=== PATIENT | male | born 1990 | race Caucasian/White ===

== ENCOUNTER 2023-07-18 07:37 | Emergency (ER) | payer MEDICAID ==
[~2023-07-18] VITALS: Ht 175.3 cm; Wt 104.2 kg
[2023-07-18 08:00] VITALS: PULSE 79; RESP 16; TEMP 98.3; O2SAT 94
[2023-07-18] MEDS ORDERED: cefTRIAXone SOD 1,000 MG VL IM ONE ×2 (08:30→10:15)
[2023-07-18] MEDS ORDERED: cefTRIAXone 1GM/50ML D5W 50 ML IV ONE (08:30)
[2023-07-18] MEDS ORDERED: CLINDAMYCIN 900MG IV 50 ML IV ONE (08:30)
[2023-07-18] MEDS ORDERED: PRED20TA2 PO (10:15)
[2023-07-18] MEDS ORDERED: CLIN300C70 PO (10:15)
[2023-07-18] MEDS ORDERED: methylPREDNISolone SOD SUCC 125 MG/2 ML VL IV ONE (10:45)
[2023-07-18 10:46] VITALS: BP 108/65; PULSE 73; RESP 22; O2SAT 94
== END 2023-07-18 10:56 | disposition home or self-care (01) ==
LOC: ER 07:37
DX: L03.012 Cellulitis of left finger (principal); I10 Essential (primary) hypertension; F17.210 Nicotine dependence, cigarettes, uncomplicated; Z79.2 Long term (current) use of antibiotics; Z79.899 Other long term (current) drug therapy
CPT/HCPCS: 96365; 96366; 96368; 96375; 99284; J0696; J2930; J3490